=== PATIENT | male | born 1980 | race Caucasian/White ===

== ENCOUNTER 2024-06-28 11:59 | Outpatient (CLI) | payer BC, SELFPAY ==
--- NOTE | 2024-06-28 12:12 | XR_ITS ---
FINAL REPORT CLINICAL HISTORY: SARCOIDOSIS COMPARISON: None FINDINGS: No acute pulmonary density is evident. There is no evidence of effusion or other pleural disease. The mediastinum has a normal appearance. The cardiac silhouette is unremarkable. IMPRESSION: Unremarkable chest exam. Reviewed, Interpreted and Dictated by Nimco Brown MD Transcribed by Ana Maria Rangel Authenticated and [facility]
== END 2024-06-28 23:59 | disposition home or self-care (01) ==
LOC: RAD 12:07
PROVIDERS: PCP Nurse Practitioner Family; Visit Provider Nurse Practitioner Family
DX: D86.9 Sarcoidosis, unspecified (principal)
CPT/HCPCS: 71046